=== PATIENT | male | born 1960 | race Asian ===

== ENCOUNTER 2022-05-04 15:35 | Emergency (ER) | payer MEDICAID ==
--- NOTE | 2022-05-04 19:07 | NUR ---
Patient's name was called in [facility], lobby and tent. He was not located. Will attempt to locate again 15 min.
--- NOTE | 2022-05-04 19:28 | NUR ---
Per baggage clerk, pt LWBS.
== END 2022-05-04 19:28 | disposition left against medical advice (07) ==
LOC: SED 15:35
DX: H53.8 Other visual disturbances (principal); Z53.21 Procedure and treatment not carried out due to patient leaving prior to being seen by health care provider